=== PATIENT | male | born 2000 | race Two or more races ===

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

== ENCOUNTER 2018-07-12 22:36 | Emergency (ER) | payer SELFPAY ==
[~2018-07-12] VITALS: Ht 170.2 cm; Wt 83.0 kg
[2018-07-12 22:46] VITALS: BP 148/80
== END 2018-07-13 00:22 | disposition home or self-care (01) ==
LOC: ER 22:52
DX: L85.3 Xerosis cutis (principal); G40.909 Epilepsy, unspecified, not intractable, without status epilepticus
CPT/HCPCS: 99283